=== PATIENT | female | born 1960 | race Caucasian/White ===

== ENCOUNTER 2019-08-10 17:08 | Inpatient (IN) | payer MEDICAID ==
[~2019-08-10] VITALS: Ht 167.6 cm; Wt 92.5 kg
[2019-08-10 17:21] VITALS: Ht 167.6 cm; Wt 92.5 kg
[2019-08-10 18:06] LABS: CALCIUM 9.3 mg/dL (8.5-10.1); CARBON DIOXIDE 25.2 mmol/L (21-32); CHLORIDE SERUM 104 mmol/L (98-107); CREATININE SERUM 0.6 mg/dL (0.6-1.0); GFR1 > 60 mL/min; GLUCOSE SERUM 118 mg/dL (74-106); POTASSIUM SERUM 4.1 mmol/L (3.5-5.1); SODIUM SERUM 139 mmol/L (136-145)
[2019-08-10 18:08] LABS: BASOPHIL % 0.1 % (0-2)
[2019-08-10 18:10] LABS: PLATELET COUNT 483 x10^3mcL (130-400); RED CELL DISTRIBUTION WIDTH 20.4 % (11.5-14.5)
[2019-08-10 18:13] LABS: ALKALINE PHOSPHATASE 68 U/L (46-116); ALT/SGPT 24 U/L (14-59); AST/SGOT 22 U/L (15-37); BILIRUBIN TOTAL 0.2 mg/dL (0.20-1.00); TOTAL PROTEIN, SERUM 6.9 g/dL (6.4-8.2)
[2019-08-10 18:15] LABS: ALBUMIN 2.6 g/dL (3.4-5.0)
[2019-08-10 18:39] LABS: rbc morphology (normal/abnorm) ABNORMAL (NORMAL)
[2019-08-10 18:41] LABS: ovalocyte/elliptocyte 1+
[2019-08-10 20:00] LABS: IRON 35 ug/dL (50-170); TOTAL IRON BINDING CAPACITY 361 ug/dL (250-450)
[2019-08-10 21:19] LABS: UA SPECIFIC GRAVITY 1.025 (1.005-1.035); microscopic required? YES; urine erythrocyte 1+ (NEGATIVE)
[2019-08-10 21:26] VITALS: BP 127/64
[2019-08-10 21:45] LABS: AMPHETAMINE QUAL UR NONE DETECTED (See below)
[2019-08-10 23:20] VITALS: BP 111/69
[2019-08-11 00:46] LABS: BASOPHIL % 0.4 % (0-2); PLATELET COUNT 379 x10^3mcL (130-400)
[2019-08-11 00:57] LABS: RED CELL DISTRIBUTION WIDTH 22.4 % (11.5-14.5)
[2019-08-11 01:01] LABS: rbc morphology (normal/abnorm) ABNORMAL (NORMAL)
[2019-08-11 03:35] VITALS: BP 113/58
[2019-08-11 05:35] VITALS: BP 110/62
[2019-08-11 06:54] VITALS: BP 100/56
[2019-08-11 08:41] LABS: BASOPHIL % 0.4 % (0-2)
[2019-08-11 08:49] LABS: PLATELET COUNT 417 x10^3mcL (130-400); RED CELL DISTRIBUTION WIDTH 21.9 % (11.5-14.5)
[2019-08-11 08:58] LABS: CALCIUM 8.6 mg/dL (8.5-10.1); CHLORIDE SERUM 107 mmol/L (98-107); CREATININE SERUM 0.6 mg/dL (0.6-1.0); GFR1 > 60 mL/min; GLUCOSE SERUM 100 mg/dL (74-106); PHOSPHOROUS 4.2 mg/dL (2.5-4.9); POTASSIUM SERUM 3.4 mmol/L (3.5-5.1); SODIUM SERUM 143 mmol/L (136-145)
[2019-08-11 09:59] LABS: rbc morphology (normal/abnorm) ABNORMAL (NORMAL)
[2019-08-11 12:28] VITALS: BP 121/69
[2019-08-11] MEDS ORDERED: PROVERA10 MG PO (13:20)
[2019-08-11 16:11] VITALS: BP 121/69
[2019-08-11 16:30] VITALS: BP 100/59
== END 2019-08-11 18:10 | disposition home or self-care (01) | DRG 532 ==
LOC: ED 17:08 → DU 20:06 → MU 08-11 09:46
PROVIDERS: Emergency Medicine; Specialist; ADMIT Internal Medicine
PROC: 30233N1 Transfusion of Nonautologous Red Blood Cells into Peripheral Vein, Percutaneous Approach (ICD-10-PCS; principal; 2019-08-10)
DX: D25.9 Leiomyoma of uterus, unspecified (principal); E43 Unspecified severe protein-calorie malnutrition; D62 Acute posthemorrhagic anemia; N39.0 Urinary tract infection, site not specified; N93.8 Other specified abnormal uterine and vaginal bleeding; D47.3 Essential (hemorrhagic) thrombocythemia; Z68.32 Body mass index [BMI] 32.0-32.9, adult
CPT/HCPCS: G0378; J0696; J7030; J7050; P9016; Q0092; Q0163